=== PATIENT | male | born 1955 | race Caucasian/White ===

== ENCOUNTER 2017-09-29 16:11 | Inpatient (IN) | payer OTHER ==
[~2017-09-29] VITALS: Ht 170.2 cm; Wt 73.8 kg
[2017-09-29 17:34] LABS: EOSINOPHIL (%) 1.3 % (0-5); EOSINOPHIL COUNT 0.1 K/uL (0-0.3); HEMATOCRIT 41.8 % (38.0-50.0); IMMATURE GRANULOCYTE (%) 0.4 % (0.0-0.7); INSTRUMENT ABS NEUTROPHIL CT 4.5 K/uL; LYMPHOCYTE COUNT 1.6 K/uL (1.0-2.8); MCH 31.5 PG (29.0-34.0); MCHC 33.3 G/DL (30.0-36.0); MCV 94.8 FL (86-99); MONOCYTE (%) 10.5 % (3-12); MONOCYTE COUNT 0.7 K/uL (0-0.8); NEUTROPHIL (%) 64.7 % (45-76); NEUTROPHIL COUNT 4.5 K/uL (1.8-6.4); PLATELET COUNT 231 K/uL (156-360); RBC DIS.WIDTH-CV 14.9 % (11.8-14.6); RBC DIS.WIDTH-SD 51.8 % (39-53); RED BLOOD COUNT 4.41 M/uL (4.00-5.50)
[2017-09-29 17:43] LABS: CHLORIDE 109 mEq/L (99-109); POTASSIUM 3.7 mEq/L (3.7-5.4); SODIUM 144 mEq/L (136-147)
[2017-09-29 17:45] LABS: GLUCOSE 91 mg/dL (70-99)
[2017-09-29 17:46] LABS: ANION GAP 11 MEQ/L (2-14)
[2017-09-29 17:49] LABS: GFR ESTIMATE (CALCULATED) > 59 mL/min/; UREA NITROGEN (BUN) 24 mg/dL (9-23)
[2017-09-29 19:30] LABS: ADD MIUA? YES; BILIRUBIN NEGATIVE; BLOOD NEGATIVE; COLOR YELLOW ((YELLOW)); GLUCOSE (STRIP) NEGATIVE; KETONES 20; LEUKOCYTES NEGATIVE; NITRITE NEGATIVE; PROTEIN (STRIP) 30; SPECIFIC GRAVITY 1.031 (1.000-1.030); UROBILINOGEN 0.2 MG/DL (0.2-1.0)
[2017-09-29 19:32] LABS: BACTERIA NONE SEEN /HPF; EPITHELIAL CELLS RARE /HPF; MUCUS TRACE /LPF; RED BLOOD CELLS 0-5 /HPF (0-5); UCUL ADDED? NO; WHITE BLOOD CELLS 0-5 /HPF (0-5)
[2017-09-29 21:20] LABS: CREATINE KINASE 1747 IU/L (1-294)
[2017-09-30 01:25] VITALS: BP 133/84
[2017-09-30 04:33] VITALS: BP 122/69
[2017-09-30 07:25] LABS: ANION GAP 12 MEQ/L (2-14); CHLORIDE 108 MEQ/L (99-109); GFR ESTIMATE (CALCULATED) > 59 mL/min/; GLUCOSE 87 mg/dL (70-99); POTASSIUM 4.1 MEQ/L (3.7-5.4); SAMPLE HEMOLYSIS CHECK 0; SAMPLE ICTERIC CHECK 0; SAMPLE LIPEMIA CHECK 0; SODIUM 146 MEQ/L (136-147); UREA NITROGEN (BUN) 22 mg/dL (9-23)
[2017-09-30 08:31] VITALS: BP 118/69
[2017-09-30] MEDS ORDERED: LIPITOR10 MG PO (09:33)
[2017-09-30] MEDS ORDERED: ASPIRIN81 M2 PO (09:33)
[2017-09-30] MEDS ORDERED: AMANTADINE100 M1 PO (09:34)
[2017-09-30] MEDS ORDERED: GLUCOPHAGE500 MG PO (09:37)
[2017-09-30] MEDS ORDERED: SEROPHENE50 MG PO (09:37)
[2017-09-30] MEDS ORDERED: SEROQUEL12.5 MG PO (09:38)
[2017-09-30] MEDS ORDERED: MOTRIN400 MG PO (11:32)
[2017-09-30] MEDS ORDERED: IMODIUM A-D2 M2 PO (11:33)
[2017-09-30] MEDS ORDERED: MIRALAX17 GM PO (11:34)
[2017-09-30 11:35] LABS: POINT-OF-CARE METER ID UU14149397
[2017-09-30] MEDS ORDERED: MELATONIN5 M3 PO (11:35)
[2017-09-30] MEDS ORDERED: CELEXA10 MG PO (11:36)
[2017-09-30] MEDS ORDERED: ROZEREM8 MG PO (11:37)
[2017-09-30 12:20] VITALS: BP 131/76
[2017-09-30 14:28] LABS: POINT-OF-CARE METER ID UU14149397
[2017-09-30 15:54] VITALS: BP 136/77
[2017-09-30 16:35] LABS: POINT-OF-CARE METER ID UU14149397
[2017-09-30 21:08] VITALS: BP 146/91
[2017-09-30 22:15] LABS: POINT-OF-CARE METER ID UU14149397
[2017-10-01 00:22] VITALS: BP 134/60
[2017-10-01 01:31] LABS: POINT-OF-CARE METER ID UU14149397
[2017-10-01 07:06] LABS: BASOPHIL COUNT 0.1 K/uL (0-0.1); EOSINOPHIL COUNT 0.2 K/uL (0-0.3); HEMATOCRIT 41.4 % (38.0-50.0); IMMATURE GRANULOCYTE (%) 0.3 % (0.0-0.7); LYMPHOCYTE COUNT 1.6 K/uL (1.0-2.8); MCH 32.1 PG (29.0-34.0); MCHC 33.3 G/DL (30.0-36.0); MCV 96.3 FL (86-99); MEAN PLAT.VOLUME 9.5 uM^3 (9.0-12.4); MONOCYTE (%) 8.7 % (3-12); MONOCYTE COUNT 0.7 K/uL (0-0.8); NEUTROPHIL (%) 66.6 % (45-76); PLATELET COUNT 209 K/uL (156-360); RBC DIS.WIDTH-CV 14.9 % (11.8-14.6); RBC DIS.WIDTH-SD 52.1 % (39-53); WHITE BLOOD COUNT 7.5 K/uL (4.1-10.2)
[2017-10-01 07:26] LABS: POINT-OF-CARE METER ID UU14149397
[2017-10-01 07:45] VITALS: BP 154/84
[2017-10-01 08:05] LABS: ANION GAP 13 MEQ/L (2-14); CHLORIDE 108 MEQ/L (99-109); GFR ESTIMATE (CALCULATED) > 59 mL/min/; GLUCOSE 85 mg/dL (70-99); POTASSIUM 3.9 MEQ/L (3.7-5.4); SAMPLE HEMOLYSIS CHECK 0; SAMPLE ICTERIC CHECK 0; SAMPLE LIPEMIA CHECK 0; SODIUM 144 MEQ/L (136-147); UREA NITROGEN (BUN) 16 mg/dL (9-23)
[2017-10-01 08:14] LABS: CREATINE KINASE 1278 IU/L (1-294)
[2017-10-01 11:51] LABS: POINT-OF-CARE METER ID UU14149397
[2017-10-01 17:43] LABS: POINT-OF-CARE METER ID UU14117124
[2017-10-01 19:39] VITALS: BP 147/80
[2017-10-01 21:16] LABS: POINT-OF-CARE METER ID UU14117124
[2017-10-01 23:32] VITALS: BP 150/80
[2017-10-02 04:26] VITALS: BP 131/60
[2017-10-02 07:10] LABS: POINT-OF-CARE METER ID UU14208753
[2017-10-02 11:31] LABS: POINT-OF-CARE METER ID UU14117124
[2017-10-02 11:53] VITALS: BP 158/90
[2017-10-02 16:59] LABS: POINT-OF-CARE METER ID UU14117124
[2017-10-02 19:35] VITALS: BP 133/83
[2017-10-02 21:41] LABS: POINT-OF-CARE METER ID UU14188577
[2017-10-02 23:36] VITALS: BP 135/80
[2017-10-03 06:37] LABS: POINT-OF-CARE METER ID UU14208753
[2017-10-03 08:06] VITALS: BP 134/83
[2017-10-03 12:18] LABS: POINT-OF-CARE METER ID UU14188577
[2017-10-03 16:06] VITALS: BP 110/54; BP 155/91
[2017-10-03 17:03] LABS: POINT-OF-CARE METER ID UU14208753
[2017-10-03 21:42] LABS: POINT-OF-CARE METER ID UU14208753
[2017-10-03 23:24] VITALS: BP 109/70
[2017-10-04 06:28] LABS: POINT-OF-CARE METER ID UU14117124
[2017-10-04 08:29] VITALS: BP 131/81
[2017-10-04] MEDS ORDERED: FLUOXETINE HCL10 MG PO (11:14)
[2017-10-04] MEDS ORDERED: CLONAZEPAM0.5 MG PO (11:14)
[2017-10-04 11:37] LABS: POINT-OF-CARE METER ID UU14188577
[2017-10-04 11:48] VITALS: BP 117/58
[2017-10-04 16:29] VITALS: BP 141/88
[2017-10-04 17:21] LABS: POINT-OF-CARE METER ID UU14188577
[2017-10-04 21:57] LABS: POINT-OF-CARE METER ID UU14188577
[2017-10-05 00:07] VITALS: BP 156/86
[2017-10-05 06:58] LABS: POINT-OF-CARE METER ID UU14117124
[2017-10-05 07:49] VITALS: BP 128/87
[2017-10-05 11:50] LABS: POINT-OF-CARE METER ID UU14117124
[2017-10-05 15:50] VITALS: BP 122/78
[2017-10-05 16:25] LABS: POINT-OF-CARE METER ID UU14117124
[2017-10-05 22:05] LABS: POINT-OF-CARE METER ID UU14117124
[2017-10-05 23:34] VITALS: BP 131/79
[2017-10-06 06:24] LABS: POINT-OF-CARE METER ID UU14188577
[2017-10-06 08:35] VITALS: BP 123/78
[2017-10-06 12:11] LABS: POINT-OF-CARE METER ID UU14208753
[2017-10-06 16:16] VITALS: BP 111/74
[2017-10-06 17:04] LABS: POINT-OF-CARE METER ID UU14188577
[2017-10-06 21:24] LABS: POINT-OF-CARE METER ID UU14188577
[2017-10-06 23:37] VITALS: BP 142/85
[2017-10-07 06:26] LABS: POINT-OF-CARE METER ID UU14208753
[2017-10-07 07:47] VITALS: BP 129/74
[2017-10-07 11:39] LABS: POINT-OF-CARE METER ID UU14117124
[2017-10-07 16:04] VITALS: BP 116/76
[2017-10-07 16:24] LABS: POINT-OF-CARE METER ID UU14208753
[2017-10-07 19:47] VITALS: BP 111/64
[2017-10-07 22:03] LABS: POINT-OF-CARE METER ID UU14208753
[2017-10-07 23:46] VITALS: BP 108/58
[2017-10-08 06:56] LABS: POINT-OF-CARE METER ID UU14117124
[2017-10-08 08:42] VITALS: BP 121/73
[2017-10-08 11:32] LABS: POINT-OF-CARE METER ID UU14117124
[2017-10-08 16:08] VITALS: BP 111/64
[2017-10-08 23:35] VITALS: BP 128/76
[2017-10-09 08:24] VITALS: BP 122/73
[2017-10-09 08:28] VITALS: BP 143/85
[2017-10-09 15:44] VITALS: BP 117/69
[2017-10-09 23:19] VITALS: BP 123/76
[2017-10-10 08:45] VITALS: BP 125/71
[2017-10-10] MEDS ORDERED: FLUOXETINE HCL20 MG PO (11:12)
[2017-10-10] MEDS ORDERED: LORAZEPAM1 MG PO (14:33)
== END 2017-10-10 14:41 | disposition home or self-care (01) | DRG 557 ==
LOC: EME → EDBD 16:11 → EDOF 22:05 → 3EAST 22:05 → ENRESERV 22:07 → 3EAST 09-30 00:48
PROVIDERS: Emergency Medicine; Internal Medicine; Student in an Organized Health Care Education/Training Program
DX: M62.82 Rhabdomyolysis (principal); G92 Toxic encephalopathy; T43.595A Adverse effect of other antipsychotics and neuroleptics, initial encounter; I80.8 Phlebitis and thrombophlebitis of other sites; F03.90 Unspecified dementia, unspecified severity, without behavioral disturbance, psychotic disturbance, mood disturbance, and anxiety; E11.9 Type 2 diabetes mellitus without complications; E78.5 Hyperlipidemia, unspecified; F20.9 Schizophrenia, unspecified; F33.9 Major depressive disorder, recurrent, unspecified; F41.1 Generalized anxiety disorder; G47.00 Insomnia, unspecified; R13.10 Dysphagia, unspecified; M25.511 Pain in right shoulder
CPT/HCPCS: 70450; 71010; 80048; 81003; 82550; 82607; 82948; 84443; 85025; 87040; 93005; 95819; 99281; 99285; J1200; J1630; J1650; J1815; J1885; J2060; J2405; J7030